=== PATIENT | male | born 1935 | race Caucasian/White ===

== ENCOUNTER 2020-10-19 10:34 | Inpatient (IN) | payer BC, MEDICARE, OTHER ==
[2020-10-19] MEDS ORDERED: ASPIRIN 81 MG CHEWABLE TABLETS PO ONE (11:22)
[2020-10-19 11:23] VITALS: BMI 28.7
[2020-10-19] MEDS ORDERED: ASPIRIN 81 MG CHEWABLE TABLETS ONE (11:44)
[2020-10-19 12:10] LABS: BASO % 0.7 % (0-2.0); EOS % 0.7 % (0-4.5); HEMATOCRIT 46.3 % (35.4-49); HEMOGLOBIN 15.7 GM/dL (11.7-16.9); LYMPH % 6.1 % (8-40); MCH 31.8 pg (25.7-33.7); MEAN CELL VOLUME 93.7 fl (80-96); MEAN PLT VOLUME 10.9 fl (7.5-11.1); MONO % 15.5 % (3.8-10.2); PLATELET COUNT 113 K/MM3 (134-434); RBC 4.94 M/mm3 (4.00-5.60); RDW 14.9 % (11.9-15.9); WHITE BLOOD COUNT 7.2 K/mm3 (4.0-10.0)
[2020-10-19 12:16] LABS: INR 1.11 (0.83-1.09); PROTHROMBIN TIME (PATIENT) 13.6 SEC (9.7-13.0)
[2020-10-19 12:19] LABS: ACTIVATED PTT 29.5 SECONDS (25.2-36.5)
[2020-10-19 12:26] LABS: POTASSIUM 4.1 mmol/L (3.5-5.1)
[2020-10-19 12:28] LABS: CALCIUM 9.1 mg/dL (8.5-10.1)
[2020-10-19 12:29] LABS: ALBUMIN 3.4 g/dl (3.4-5.0)
[2020-10-19 12:33] LABS: BILIRUBIN,TOTAL 0.4 mg/dL (0.2-1); TOT PROT 7.3 g/dl (6.4-8.2)
[2020-10-19 12:34] LABS: CHOLESTEROL 141 mg/dL (50-200); TRIGLYCERIDES 62 mg/dL (0-150)
[2020-10-19 12:35] LABS: LDL CHOLESTEROL (ONLY SJRH) 79 mg/dL (5-100)
[2020-10-19 12:37] LABS: HDL CHOLESTEROL 45 mg/dL (40-60)
[2020-10-19] MEDS ORDERED: SODIUM CHLORIDE 1,000 ML IV SCH (13:15)
[2020-10-19] MEDS ORDERED: metoPROLOL SUCCINATE 25 MG TAB.SR.24H (FP) PO ONE (14:15)
[2020-10-19] MEDS ORDERED: ESCITALOPRAM OXALATE 10 MG TABLET PO ONE (14:16)
[2020-10-19] MEDS ORDERED: ATORVASTATIN CA 20 MG TABLET (FP) PO ONE (14:19)
[2020-10-19] MEDS ORDERED: ATORVASTATIN CA 20 MG TABLET (FP) ONE (14:59)
[2020-10-19] MEDS ORDERED: metoPROLOL SUCCINATE 25 MG TAB.SR.24H (FP) ONE (15:00)
[2020-10-19] MEDS ORDERED: ESCITALOPRAM OXALATE 10 MG TABLET ONE (15:00)
[2020-10-19] MEDS ORDERED: LOSARTAN POTASSIUM 50 MG TABLET ONE (15:00)
[2020-10-19] MEDS ORDERED: TAMSULOSIN HCL 0.4 MG CAP ONE (15:00)
[2020-10-19] MEDS ORDERED: CARBIDOPA/LEVODOPA 25/250 TABLET (FP) ONE (15:01)
[2020-10-19] MEDS ORDERED: ENALAPRILAT DIHYDRATE 1.25 MG/1 ML VIAL IVPB ONE (15:04)
[2020-10-19] MEDS: LOSARTAN POTASSIUM 50 MG TABLET PO SCH (15:29)
[2020-10-19] MEDS: metoPROLOL SUCCINATE 25 MG TAB.SR.24H (FP) PO SCH (15:30)
[2020-10-19] MEDS: TAMSULOSIN HCL 0.4 MG CAP PO SCH (15:30)
[2020-10-19] MEDS ORDERED: ENALAPRILAT DIHYDRATE 2.5 MG/2 ML VIAL IVPB ONE ×2 (16:00→17:13)
[2020-10-19] MEDS ORDERED: ASCORBIC ACID 500 MG TABLET (FP) ONE (17:13)
[2020-10-19] MEDS: ASCORBIC ACID 500 MG TABLET (FP) PO SCH (17:25)
[2020-10-19 20:56] LABS: PH,URINE 5.5 (5.0-8.0); URINE APPEARANCE CLEAR; URINE BILIRUBIN NEGATIVE (NEGATIVE); URINE COLOR YELLOW; URINE GLUCOSE (UA) NEGATIVE (NEGATIVE); URINE KETONE NEGATIVE (NEGATIVE); URINE LEUK ESTERASE NEGATIVE (NEGATIVE); URINE NITRITE NEGATIVE (NEGATIVE); URINE PROTEIN TRACE (NEGATIVE)
[2020-10-19] MEDS ORDERED: HEPARIN NA (PORCINE) 5,000 UNITS/ML 1ML VIAL ONE (22:44)
[2020-10-19] MEDS: HEPARIN NA (PORCINE) 5,000 UNITS/ML 1ML VIAL SQ SCH (23:44)
[2020-10-19] MEDS: RIVASTIGMINE TARTRATE 1.5 MG CAPSULE PO SCH (23:44)
[2020-10-20] MEDS ORDERED: ACETAMINOPHEN 325 MG TABLET (FP) PO PRN (03:05)
[2020-10-20 07:24] LABS: BASO % 0.7 % (0-2.0); EOS % 0.2 % (0-4.5); HEMATOCRIT 43.9 % (35.4-49); MCH 32.2 pg (25.7-33.7); MCHC 34.1 g/dl (32.0-35.9); MEAN CELL VOLUME 94.4 fl (80-96); MEAN PLT VOLUME 11.4 fl (7.5-11.1); MONO % 22.7 % (3.8-10.2); NEUT % 57.4 % (42.8-82.8); PLATELET COUNT 95 K/MM3 (134-434); RBC 4.65 M/mm3 (4.00-5.60); RDW 15.4 % (11.9-15.9); WHITE BLOOD COUNT 6.4 K/mm3 (4.0-10.0)
[2020-10-20 07:32] LABS: POTASSIUM 3.7 mmol/L (3.5-5.1)
[2020-10-20 07:40] LABS: BLOOD UREA NITROGEN 26.2 mg/dL (7-18); CALCIUM 8.5 mg/dL (8.5-10.1)
[2020-10-20 07:43] LABS: CREATININE 0.8 mg/dL (0.55-1.3)
[2020-10-20 08:40] LABS: ANISOCYTOSIS 1+; PLATELET ESTIMATE DECREASED
[2020-10-20] MEDS ORDERED: ASCORBIC ACID 500 MG TABLET (FP) ONE (09:10)
[2020-10-20] MEDS ORDERED: ZINC SULFATE 220 MG CAPSULE (FP) ONE (09:10)
[2020-10-20] MEDS ORDERED: TAMSULOSIN HCL 0.4 MG CAP ONE (09:10)
[2020-10-20] MEDS ORDERED: CHOLECALCIFEROL (VIT D3) 1,000 UNIT (25 MCG) TABLET ONE (09:10)
[2020-10-20] MEDS ORDERED: ASPIRIN 325 MG ENTERIC COATED TABLET (FP) ONE (09:10)
[2020-10-20] MEDS ORDERED: LOSARTAN POTASSIUM 50 MG TABLET ONE (09:10)
[2020-10-20] MEDS ORDERED: ESCITALOPRAM OXALATE 10 MG TABLET ONE (09:11)
[2020-10-20] MEDS ORDERED: HEPARIN NA (PORCINE) 5,000 UNITS/ML 1ML VIAL ONE (09:11)
[2020-10-20] MEDS ORDERED: PT OWN MED DRAWER 7, Y5N ONE ×2 (09:12→20:59)
[2020-10-20] MEDS: HEPARIN NA (PORCINE) 5,000 UNITS/ML 1ML VIAL SQ SCH ×2 (09:52→21:17)
[2020-10-20] MEDS: FINASTERIDE 5 MG TABLET (FP) PO SCH (09:52)
[2020-10-20] MEDS: ZINC SULFATE 220 MG CAPSULE (FP) PO SCH (09:52)
[2020-10-20] MEDS: TAMSULOSIN HCL 0.4 MG CAP PO SCH (09:52)
[2020-10-20] MEDS: ESCITALOPRAM OXALATE 10 MG TABLET PO SCH (09:52)
[2020-10-20] MEDS: ASCORBIC ACID 500 MG TABLET (FP) PO SCH (09:52)
[2020-10-20] MEDS: LOSARTAN POTASSIUM 50 MG TABLET PO SCH (09:52)
[2020-10-20] MEDS: ASPIRIN 325 MG ENTERIC COATED TABLET (FP) PO SCH (09:52)
[2020-10-20] MEDS: RIVASTIGMINE TARTRATE 1.5 MG CAPSULE PO SCH ×2 (09:52→23:04)
[2020-10-20] MEDS: ALLOPURINOL 300 MG TABLET (FP) PO SCH (09:53)
[2020-10-20] MEDS: CHOLECALCIFEROL (VIT D3) 1,000 UNIT (25 MCG) TABLET PO SCH (09:53)
[2020-10-20] MEDS ORDERED: DEXAMETHASONE SOD PHOSPHATE 4 MG/1 ML VIAL ONE (12:21)
[2020-10-20] MEDS: DEXAMETHASONE SOD PHOSPHATE 4 MG/1 ML VIAL IVPUSH SCH (12:35)
[2020-10-20] MEDS ORDERED: SODIUM CHLORIDE 1,000 ML IV SCH (20:30)
[2020-10-20] MEDS: ROSUVASTATIN CA 20 MG TABLET (FP) PO SCH (21:17)
[2020-10-20] MEDS ORDERED: EZETIMIBE 10 MG TABLET (FP) PO SCH (22:00)
[2020-10-21 08:30] LABS: HEMATOCRIT 44.7 % (35.4-49); MCHC 33.6 g/dl (32.0-35.9); MEAN CELL VOLUME 95.2 fl (80-96); MEAN PLT VOLUME 11.8 fl (7.5-11.1); PLATELET COUNT 92 K/MM3 (134-434); RDW 14.9 % (11.9-15.9); WHITE BLOOD COUNT 5.7 K/mm3 (4.0-10.0)
[2020-10-21 08:52] LABS: POTASSIUM 3.7 mmol/L (3.5-5.1)
[2020-10-21 09:01] LABS: CALCIUM 8.5 mg/dL (8.5-10.1); MAGNESIUM 1.8 mg/dL (1.8-2.4)
[2020-10-21 09:02] LABS: BLOOD UREA NITROGEN 27.3 mg/dL (7-18)
[2020-10-21 09:04] LABS: CREATININE 0.7 mg/dL (0.55-1.3)
[2020-10-21] MEDS: TAMSULOSIN HCL 0.4 MG CAP PO SCH (10:12)
[2020-10-21] MEDS: ALLOPURINOL 300 MG TABLET (FP) PO SCH (10:12)
[2020-10-21] MEDS: RIVASTIGMINE TARTRATE 1.5 MG CAPSULE PO SCH ×2 (10:12→22:19)
[2020-10-21] MEDS: DEXAMETHASONE SOD PHOSPHATE 4 MG/1 ML VIAL IVPUSH SCH (10:12)
[2020-10-21] MEDS: LOSARTAN POTASSIUM 50 MG TABLET PO SCH (10:12)
[2020-10-21] MEDS: FINASTERIDE 5 MG TABLET (FP) PO SCH (10:12)
[2020-10-21] MEDS: ESCITALOPRAM OXALATE 10 MG TABLET PO SCH (10:12)
[2020-10-21] MEDS: ASCORBIC ACID 500 MG TABLET (FP) PO SCH (10:13)
[2020-10-21] MEDS: CHOLECALCIFEROL (VIT D3) 1,000 UNIT (25 MCG) TABLET PO SCH (10:13)
[2020-10-21] MEDS: HEPARIN NA (PORCINE) 5,000 UNITS/ML 1ML VIAL SQ SCH ×2 (10:13→22:20)
[2020-10-21] MEDS: metoPROLOL SUCCINATE 25 MG TAB.SR.24H (FP) PO SCH (10:53)
[2020-10-21] MEDS ORDERED: PT OWN MED DRAWER 7, Y5N ONE (12:37)
[2020-10-21] MEDS: ASPIRIN 325 MG ENTERIC COATED TABLET (FP) PO SCH (12:52)
[2020-10-21] MEDS: ZINC SULFATE 220 MG CAPSULE (FP) PO SCH (13:53)
[2020-10-21] MEDS: ROSUVASTATIN CA 20 MG TABLET (FP) PO SCH (22:19)
[2020-10-22 07:46] LABS: POTASSIUM 3.7 mmol/L (3.5-5.1)
[2020-10-22 07:48] LABS: BLOOD UREA NITROGEN 22.2 mg/dL (7-18); CALCIUM 9.2 mg/dL (8.5-10.1); MAGNESIUM 1.7 mg/dL (1.8-2.4)
[2020-10-22 07:52] LABS: CREATININE 0.9 mg/dL (0.55-1.3); PHOSPHOROUS 1.6 mg/dL (2.5-4.9)
[2020-10-22 08:58] LABS: HEMATOCRIT 50.1 % (35.4-49); HEMOGLOBIN 16.7 GM/dL (11.7-16.9); MCH 31.4 pg (25.7-33.7); MCHC 33.4 g/dl (32.0-35.9); RBC 5.33 M/mm3 (4.00-5.60); WHITE BLOOD COUNT 7.7 K/mm3 (4.0-10.0)
[2020-10-22 08:59] LABS: LYMPH % 12.6 % (8-40); MEAN PLT VOLUME 11.7 fl (7.5-11.1); MONO % 19.6 % (3.8-10.2); NEUT % 66.8 % (42.8-82.8); PLATELET COUNT 105 K/MM3 (134-434); RDW 15.1 % (11.9-15.9)
[2020-10-22] MEDS ORDERED: PT OWN MED DRAWER 7, Y5N ONE ×2 (10:18→21:24)
[2020-10-22] MEDS: DEXAMETHASONE SOD PHOSPHATE 4 MG/1 ML VIAL IVPUSH SCH (10:27)
[2020-10-22] MEDS: CHOLECALCIFEROL (VIT D3) 1,000 UNIT (25 MCG) TABLET PO SCH (10:27)
[2020-10-22] MEDS: RIVASTIGMINE TARTRATE 1.5 MG CAPSULE PO SCH ×2 (10:28→22:19)
[2020-10-22] MEDS: ASCORBIC ACID 500 MG TABLET (FP) PO SCH (10:28)
[2020-10-22] MEDS: ALLOPURINOL 300 MG TABLET (FP) PO SCH (10:28)
[2020-10-22] MEDS: TAMSULOSIN HCL 0.4 MG CAP PO SCH (10:28)
[2020-10-22] MEDS: ZINC SULFATE 220 MG CAPSULE (FP) PO SCH (10:28)
[2020-10-22] MEDS: ESCITALOPRAM OXALATE 10 MG TABLET PO SCH (10:28)
[2020-10-22] MEDS: LOSARTAN POTASSIUM 50 MG TABLET PO SCH (10:28)
[2020-10-22] MEDS: FINASTERIDE 5 MG TABLET (FP) PO SCH (10:28)
[2020-10-22] MEDS: HEPARIN NA (PORCINE) 5,000 UNITS/ML 1ML VIAL SQ SCH ×2 (10:29→22:18)
[2020-10-22] MEDS: ASPIRIN 325 MG ENTERIC COATED TABLET (FP) PO SCH (10:29)
[2020-10-22] MEDS: metoPROLOL SUCCINATE 25 MG TAB.SR.24H (FP) PO SCH (10:30)
[2020-10-22] MEDS ORDERED: MAGNESIUM SULF 50% (8.12 MEQ/2 ML-1 GM VIAL) IVPB ONE (12:07)
[2020-10-22] MEDS ORDERED: POTASSIUM PHOSPHATE 30 MM in SODIUM CHLORIDE 500 ML IVPB ONE (13:00)
[2020-10-22] MEDS: amLODIPine BESYLATE 5 MG TABLET (FP) PO SCH (14:44)
[2020-10-22] MEDS ORDERED: REMDESIVIR 200 MG in SODIUM CHLORIDE 210 ML IVPB ONE (15:31)
[2020-10-22] MEDS: ROSUVASTATIN CA 20 MG TABLET (FP) PO SCH (22:19)
[2020-10-23 08:03] LABS: BASO % 0.1 % (0-2.0); HEMATOCRIT 48.9 % (35.4-49); HEMOGLOBIN 16.4 GM/dL (11.7-16.9); LYMPH % 25.7 % (8-40); MCH 31.6 pg (25.7-33.7); MCHC 33.6 g/dl (32.0-35.9); MEAN CELL VOLUME 93.9 fl (80-96); MEAN PLT VOLUME 11.6 fl (7.5-11.1); MONO % 19.5 % (3.8-10.2); NEUT % 54.7 % (42.8-82.8); PLATELET COUNT 97 K/MM3 (134-434); RBC 5.21 M/mm3 (4.00-5.60); RDW 15.1 % (11.9-15.9); WHITE BLOOD COUNT 5.2 K/mm3 (4.0-10.0)
[2020-10-23 08:17] LABS: ALBUMIN 3.2 g/dl (3.4-5.0); BLOOD UREA NITROGEN 24.8 mg/dL (7-18)
[2020-10-23 08:20] LABS: CREATININE 0.7 mg/dL (0.55-1.3); PHOSPHOROUS 1.9 mg/dL (2.5-4.9)
[2020-10-23 08:22] LABS: TOT PROT 7.2 g/dl (6.4-8.2)
[2020-10-23] MEDS ORDERED: PT OWN MED DRAWER 7, Y5N ONE (09:24)
[2020-10-23 09:31] LABS: PLATELET ESTIMATE DECREASED
[2020-10-23] MEDS: CHOLECALCIFEROL (VIT D3) 1,000 UNIT (25 MCG) TABLET PO SCH (09:42)
[2020-10-23] MEDS: ESCITALOPRAM OXALATE 10 MG TABLET PO SCH (09:43)
[2020-10-23] MEDS: ZINC SULFATE 220 MG CAPSULE (FP) PO SCH (09:43)
[2020-10-23] MEDS: ASCORBIC ACID 500 MG TABLET (FP) PO SCH (09:43)
[2020-10-23] MEDS: amLODIPine BESYLATE 5 MG TABLET (FP) PO SCH (09:43)
[2020-10-23] MEDS: ALLOPURINOL 300 MG TABLET (FP) PO SCH (09:43)
[2020-10-23] MEDS: RIVASTIGMINE TARTRATE 1.5 MG CAPSULE PO SCH ×2 (09:44→21:52)
[2020-10-23] MEDS: TAMSULOSIN HCL 0.4 MG CAP PO SCH (09:44)
[2020-10-23] MEDS: LOSARTAN POTASSIUM 50 MG TABLET PO SCH (09:44)
[2020-10-23] MEDS: ASPIRIN 325 MG ENTERIC COATED TABLET (FP) PO SCH (09:45)
[2020-10-23] MEDS: metoPROLOL SUCCINATE 25 MG TAB.SR.24H (FP) PO SCH (09:45)
[2020-10-23] MEDS: FINASTERIDE 5 MG TABLET (FP) PO SCH (09:45)
[2020-10-23] MEDS: DEXAMETHASONE SOD PHOSPHATE 4 MG/1 ML VIAL IVPUSH SCH (09:46)
[2020-10-23] MEDS: HEPARIN NA (PORCINE) 5,000 UNITS/ML 1ML VIAL SQ SCH ×2 (09:46→21:53)
[2020-10-23] MEDS: REMDESIVIR 100 MG in SODIUM CHLORIDE 230 ML IVPB SCH (17:09)
[2020-10-23] MEDS: NAPH,MB-DB/K PH,MBDB POWDER PACKET PO SCH (21:52)
[2020-10-23] MEDS: ROSUVASTATIN CA 20 MG TABLET (FP) PO SCH (21:52)
[2020-10-24 08:42] LABS: HEMOGLOBIN 17.2 GM/dL (11.7-16.9); MCH 31.5 pg (25.7-33.7); MCHC 33.7 g/dl (32.0-35.9); MEAN CELL VOLUME 93.3 fl (80-96); MEAN PLT VOLUME 10.3 fl (7.5-11.1); PLATELET COUNT 87 K/MM3 (134-434); RBC 5.47 M/mm3 (4.00-5.60); RDW 15.3 % (11.9-15.9); WHITE BLOOD COUNT 6.2 K/mm3 (4.0-10.0)
[2020-10-24 08:58] LABS: POTASSIUM 3.9 mmol/L (3.5-5.1)
[2020-10-24 09:07] LABS: CALCIUM 8.9 mg/dL (8.5-10.1)
[2020-10-24 09:08] LABS: BLOOD UREA NITROGEN 29.8 mg/dL (7-18)
[2020-10-24 09:11] LABS: CREATININE 0.8 mg/dL (0.55-1.3)
[2020-10-24] MEDS: TAMSULOSIN HCL 0.4 MG CAP PO SCH (09:31)
[2020-10-24] MEDS: HEPARIN NA (PORCINE) 5,000 UNITS/ML 1ML VIAL SQ SCH ×2 (09:31→21:41)
[2020-10-24] MEDS: ZINC SULFATE 220 MG CAPSULE (FP) PO SCH (09:31)
[2020-10-24] MEDS: DEXAMETHASONE SOD PHOSPHATE 4 MG/1 ML VIAL IVPUSH SCH (09:31)
[2020-10-24] MEDS: LOSARTAN POTASSIUM 50 MG TABLET PO SCH (09:32)
[2020-10-24] MEDS: ASCORBIC ACID 500 MG TABLET (FP) PO SCH (09:32)
[2020-10-24] MEDS: ALLOPURINOL 300 MG TABLET (FP) PO SCH (09:32)
[2020-10-24] MEDS: FINASTERIDE 5 MG TABLET (FP) PO SCH (09:32)
[2020-10-24] MEDS: CHOLECALCIFEROL (VIT D3) 1,000 UNIT (25 MCG) TABLET PO SCH (09:32)
[2020-10-24] MEDS: amLODIPine BESYLATE 5 MG TABLET (FP) PO SCH (09:32)
[2020-10-24] MEDS: ESCITALOPRAM OXALATE 10 MG TABLET PO SCH (09:32)
[2020-10-24] MEDS ORDERED: PT OWN MED DRAWER 7, Y5N ONE ×2 (09:34→21:24)
[2020-10-24] MEDS: ASPIRIN 325 MG ENTERIC COATED TABLET (FP) PO SCH (09:35)
[2020-10-24] MEDS: metoPROLOL SUCCINATE 25 MG TAB.SR.24H (FP) PO SCH (09:35)
[2020-10-24] MEDS: RIVASTIGMINE TARTRATE 1.5 MG CAPSULE PO SCH ×2 (09:35→21:40)
[2020-10-24] MEDS: NAPH,MB-DB/K PH,MBDB POWDER PACKET PO SCH ×2 (09:35→21:41)
[2020-10-24 14:56] LABS: PHOSPHOROUS 2.5 mg/dL (2.5-4.9)
[2020-10-24] MEDS: REMDESIVIR 100 MG in SODIUM CHLORIDE 230 ML IVPB SCH (17:05)
[2020-10-24] MEDS ORDERED: ASPIRIN 325 MG ENTERIC COATED TABLET (FP) PO SCH (19:21)
[2020-10-24] MEDS: ROSUVASTATIN CA 20 MG TABLET (FP) PO SCH (21:40)
[2020-10-25] MEDS: HEPARIN NA (PORCINE) 5,000 UNITS/ML 1ML VIAL SQ SCH ×3 (06:05→21:39)
[2020-10-25 07:19] LABS: HEMATOCRIT 50.8 % (35.4-49); HEMOGLOBIN 17.1 GM/dL (11.7-16.9); MCH 31.6 pg (25.7-33.7); MCHC 33.6 g/dl (32.0-35.9); MEAN CELL VOLUME 93.9 fl (80-96); MEAN PLT VOLUME 11.3 fl (7.5-11.1); PLATELET COUNT 93 K/MM3 (134-434); RBC 5.42 M/mm3 (4.00-5.60); RDW 15.4 % (11.9-15.9)
[2020-10-25 07:44] LABS: POTASSIUM 3.8 mmol/L (3.5-5.1)
[2020-10-25 07:46] LABS: CALCIUM 8.7 mg/dL (8.5-10.1)
[2020-10-25 07:50] LABS: CREATININE 0.7 mg/dL (0.55-1.3); PHOSPHOROUS 2.5 mg/dL (2.5-4.9)
[2020-10-25 07:51] LABS: BILIRUBIN,TOTAL 0.5 mg/dL (0.2-1); TOT PROT 6.8 g/dl (6.4-8.2)
[2020-10-25] MEDS: TAMSULOSIN HCL 0.4 MG CAP PO SCH (09:45)
[2020-10-25] MEDS: LOSARTAN POTASSIUM 50 MG TABLET PO SCH (09:45)
[2020-10-25] MEDS: ALLOPURINOL 300 MG TABLET (FP) PO SCH (09:46)
[2020-10-25] MEDS: CHOLECALCIFEROL (VIT D3) 1,000 UNIT (25 MCG) TABLET PO SCH (09:46)
[2020-10-25] MEDS: amLODIPine BESYLATE 5 MG TABLET (FP) PO SCH (09:46)
[2020-10-25] MEDS: ASPIRIN COATED 81 MG TABLET.EC PO SCH (09:46)
[2020-10-25] MEDS: NAPH,MB-DB/K PH,MBDB POWDER PACKET PO SCH ×2 (09:46→21:40)
[2020-10-25] MEDS: ASCORBIC ACID 500 MG TABLET (FP) PO SCH (09:46)
[2020-10-25] MEDS: ESCITALOPRAM OXALATE 10 MG TABLET PO SCH (09:46)
[2020-10-25] MEDS: ZINC SULFATE 220 MG CAPSULE (FP) PO SCH (09:46)
[2020-10-25] MEDS: DEXAMETHASONE SOD PHOSPHATE 4 MG/1 ML VIAL IVPUSH SCH (09:46)
[2020-10-25] MEDS: FINASTERIDE 5 MG TABLET (FP) PO SCH (09:47)
[2020-10-25] MEDS: RIVASTIGMINE TARTRATE 1.5 MG CAPSULE PO SCH ×2 (09:49→21:39)
[2020-10-25] MEDS: metoPROLOL SUCCINATE 25 MG TAB.SR.24H (FP) PO SCH (10:24)
[2020-10-25] MEDS ORDERED: LOSARTAN POTASSIUM 25 MG TABLET PO ONE (13:36)
[2020-10-25 15:02] LABS: MAGNESIUM 1.9 mg/dL (1.8-2.4)
[2020-10-25] MEDS: REMDESIVIR 100 MG in SODIUM CHLORIDE 230 ML IVPB SCH (15:11)
[2020-10-25] MEDS ORDERED: MAGNESIUM SULF 50% (8.12 MEQ/2 ML-1 GM VIAL) IVPB ONE (15:20)
[2020-10-25] MEDS: KCL 10 MEQ IVPB 10 MEQ/100 ML INFUS.BAG IVPB SCH ×3 (18:03→21:30)
[2020-10-25] MEDS: ROSUVASTATIN CA 20 MG TABLET (FP) PO SCH (21:39)
[2020-10-26] MEDS: HEPARIN NA (PORCINE) 5,000 UNITS/ML 1ML VIAL SQ SCH ×2 (06:04→14:56)
[2020-10-26 09:38] LABS: MEAN PLT VOLUME 10.2 fl (7.5-11.1); PLATELET COUNT 87 K/MM3 (134-434)
[2020-10-26] MEDS: RIVASTIGMINE TARTRATE 1.5 MG CAPSULE PO SCH (09:53)
[2020-10-26] MEDS: TAMSULOSIN HCL 0.4 MG CAP PO SCH (09:53)
[2020-10-26] MEDS: NAPH,MB-DB/K PH,MBDB POWDER PACKET PO SCH (09:53)
[2020-10-26] MEDS: ALLOPURINOL 300 MG TABLET (FP) PO SCH (09:54)
[2020-10-26] MEDS: CHOLECALCIFEROL (VIT D3) 1,000 UNIT (25 MCG) TABLET PO SCH (09:54)
[2020-10-26] MEDS: ESCITALOPRAM OXALATE 10 MG TABLET PO SCH (09:57)
[2020-10-26] MEDS: ASPIRIN COATED 81 MG TABLET.EC PO SCH (09:57)
[2020-10-26] MEDS: DEXAMETHASONE SOD PHOSPHATE 4 MG/1 ML VIAL IVPUSH SCH (09:57)
[2020-10-26] MEDS: amLODIPine BESYLATE 5 MG TABLET (FP) PO SCH (09:57)
[2020-10-26] MEDS: ZINC SULFATE 220 MG CAPSULE (FP) PO SCH (09:58)
[2020-10-26] MEDS: FINASTERIDE 5 MG TABLET (FP) PO SCH (09:58)
[2020-10-26] MEDS: ASCORBIC ACID 500 MG TABLET (FP) PO SCH (09:59)
[2020-10-26] MEDS ORDERED: LOSARTAN POTASSIUM 50 MG TABLET PO SCH (10:00)
[2020-10-26 10:01] LABS: POTASSIUM 3.8 mmol/L (3.5-5.1)
[2020-10-26 10:04] LABS: HEMATOCRIT 49.4 % (35.4-49); HEMOGLOBIN 16.6 GM/dL (11.7-16.9); MCH 31.6 pg (25.7-33.7); MCHC 33.6 g/dl (32.0-35.9); MEAN CELL VOLUME 94.1 fl (80-96); RBC 5.25 M/mm3 (4.00-5.60); RDW 15.1 % (11.9-15.9); WHITE BLOOD COUNT 7.6 K/mm3 (4.0-10.0)
[2020-10-26 10:56] LABS: CALCIUM 9.1 mg/dL (8.5-10.1)
[2020-10-26 10:57] LABS: ALBUMIN 2.9 g/dl (3.4-5.0); BLOOD UREA NITROGEN 35.9 mg/dL (7-18)
[2020-10-26 11:00] LABS: CREATININE 0.7 mg/dL (0.55-1.3)
[2020-10-26 11:02] LABS: BILIRUBIN,TOTAL 0.6 mg/dL (0.2-1); TOT PROT 6.8 g/dl (6.4-8.2)
[2020-10-26] MEDS: metoPROLOL SUCCINATE 25 MG TAB.SR.24H (FP) PO SCH (11:15)
[2020-10-26 15:59] VITALS: BP 108/67; PULSE 79; TEMP 98.9
[2020-10-26] MEDS: REMDESIVIR 100 MG in SODIUM CHLORIDE 230 ML IVPB SCH (15:59)
== END 2020-10-26 18:44 | disposition home health service (06) | DRG 177 ==
LOC: JER 10:34 → JERBED 13:06 → J4W 10-20 18:44
PROVIDERS: ADMIT Internal Medicine; ATTEND Internal Medicine
PROC: XW13325 Transfusion of Convalescent Plasma (Nonautologous) into Peripheral Vein, Percutaneous Approach, New Technology Group 5 (ICD-10-PCS; principal; 2020-10-22)
PROC: XW033E5 Introduction of Remdesivir Anti-infective into Peripheral Vein, Percutaneous Approach, New Technology Group 5 (ICD-10-PCS; 2020-10-22)
DX: U07.1 COVID-19 (principal); G93.41 Metabolic encephalopathy; J96.01 Acute respiratory failure with hypoxia; J12.82 Pneumonia due to coronavirus disease 2019; E87.1 Hypo-osmolality and hyponatremia; I47.1 Supraventricular tachycardia; G81.94 Hemiplegia, unspecified affecting left nondominant side; F03.90 Unspecified dementia, unspecified severity, without behavioral disturbance, psychotic disturbance, mood disturbance, and anxiety; I10 Essential (primary) hypertension; I25.10 Atherosclerotic heart disease of native coronary artery without angina pectoris; E78.5 Hyperlipidemia, unspecified; I44.0 Atrioventricular block, first degree; G20 Parkinson's disease; F02.80 Dementia in other diseases classified elsewhere, unspecified severity, without behavioral disturbance, psychotic disturbance, mood disturbance, and anxiety; N40.0 Benign prostatic hyperplasia without lower urinary tract symptoms; R00.1 Bradycardia, unspecified; M10.9 Gout, unspecified; D75.1 Secondary polycythemia
CPT/HCPCS: 36415; 36430; 70450-TC; 70496-TC; 70498-TC; 70551-TC; 71045-TC-FY; 80048; 80053; 80061; 81003; 82550; 82728; 82962; 83036; 83615; 83721; 83735; 84100; 84443; 84484; 85025; 85027; 85379; 85610; 85730; 86140; 86850; 86900; 86901; 87426; 87804; 93005; 93010; 94761; 97116-GP; 97161-GP; 99285-25; C9399; J1644; P9017

== ENCOUNTER 2022-05-03 21:04 | Inpatient (IN) | payer OTHER ==
[2022-05-03 21:26] VITALS: BMI 29.9
[2022-05-03 23:25] LABS: VENOUS O2 SATURATION 90.7 % (70-80); VENOUS PCO2 51.2 mmHg (38-52); VENOUS PH 7.402 (7.310-7.410)
[2022-05-03 23:26] LABS: BASO % 1.9 % (0-2.0); EOS % 0.6 % (0-4.5); HEMATOCRIT 42.5 % (35.4-49); HEMOGLOBIN 14.4 GM/dL (11.7-16.9); LYMPH % 23.4 % (8-40); MCH 31.9 pg (25.7-33.7); MCHC 33.8 g/dl (32.0-35.9); MEAN CELL VOLUME 94.5 fl (80-96); MEAN PLT VOLUME 9.9 fl (7.5-11.1); MONO % 7.9 % (3.8-10.2); NEUT % 66.2 % (42.8-82.8); PLATELET COUNT 121 10^3/uL (134-434); RDW 15.1 % (11.9-15.9); WHITE BLOOD COUNT 6.8 K/mm3 (4.0-10.0)
[2022-05-03 23:50] LABS: PH,URINE 5.5 (5.0-8.0); URINE APPEARANCE CLEAR; URINE BILIRUBIN NEGATIVE (NEGATIVE); URINE COLOR YELLOW; URINE GLUCOSE (UA) NEGATIVE (NEGATIVE); URINE KETONE NEGATIVE (NEGATIVE); URINE LEUK ESTERASE NEGATIVE (NEGATIVE); URINE NITRITE NEGATIVE (NEGATIVE); URINE PROTEIN NEGATIVE (NEGATIVE)
[2022-05-03 23:58] LABS: CALCIUM 8.8 mg/dL (8.5-10.1)
[2022-05-03 23:59] LABS: ALBUMIN 3.1 g/dl (3.4-5.0); BLOOD UREA NITROGEN 24.3 mg/dL (7-18)
[2022-05-04 00:02] LABS: CREATININE 0.8 mg/dL (0.55-1.3)
[2022-05-04 00:03] LABS: BILIRUBIN,TOTAL 0.6 mg/dL (0.2-1)
[2022-05-04] MEDS ORDERED: ACETAMINOPHEN 325 MG TABLET (FP) PO PRN (02:19)
[2022-05-04] MEDS ORDERED: ALBUTEROL SO4 HFA INHALER IH PRN (04:55)
[2022-05-04] MEDS ORDERED: hydrALAZINE HCL 20 MG/ML VIAL IVPUSH ONE (06:27)
[2022-05-04 07:14] VITALS: TEMP 98.6
[2022-05-04] MEDS ORDERED: TAMSULOSIN HCL 0.4 MG CAP PO SCH (08:30)
[2022-05-04] MEDS ORDERED: CHOLECALCIFEROL (VIT D3) 1,000 UNIT (25 MCG) TABLET ONE (09:02)
[2022-05-04] MEDS ORDERED: ASPIRIN 81 MG CHEWABLE TABLETS ONE (09:02)
[2022-05-04] MEDS ORDERED: TAMSULOSIN HCL 0.4 MG CAP ONE (09:03)
[2022-05-04] MEDS ORDERED: ENOXAPARIN NA (PORCINE) 40 MG/0.4 ML DISP.SYRIN SQ ONE (09:03)
[2022-05-04] MEDS ORDERED: ASCORBIC ACID 500 MG TABLET (FP) ONE (09:07)
[2022-05-04] MEDS ORDERED: FINASTERIDE 5 MG TABLET (FP) PO SCH (10:00)
[2022-05-04] MEDS ORDERED: CHOLECALCIFEROL (VIT D3) 1,000 UNIT (25 MCG) TABLET PO SCH (10:00)
[2022-05-04] MEDS ORDERED: PATIENT'S OWN MEDICATION (NON-FORMULARY) (Ubidecarenone [Coq-10] 100 MG Capsule) PO SCH (10:00)
[2022-05-04] MEDS ORDERED: ASPIRIN 81 MG CHEWABLE TABLETS PO SCH (10:00)
[2022-05-04] MEDS ORDERED: metoPROLOL SUCCINATE 25 MG TAB.SR.24H (FP) PO SCH ×2 (10:00→13:00)
[2022-05-04] MEDS ORDERED: ALLOPURINOL 300 MG TABLET (FP) PO SCH (10:00)
[2022-05-04] MEDS ORDERED: RIVASTIGMINE TARTRATE 1.5 MG CAPSULE PO SCH (10:00)
[2022-05-04] MEDS ORDERED: ESCITALOPRAM OXALATE 10 MG TABLET PO SCH (10:00)
[2022-05-04] MEDS ORDERED: EZETIMIBE 10 MG TABLET (FP) PO SCH (10:00)
[2022-05-04] MEDS ORDERED: ASCORBIC ACID 500 MG TABLET (FP) PO SCH (10:00)
[2022-05-04] MEDS ORDERED: ENOXAPARIN NA (PORCINE) 40 MG/0.4 ML DISP.SYRIN SQ SCH (10:00)
[2022-05-04 10:47] VITALS: RESP 17
[2022-05-04 12:18] LABS: BLOOD UREA NITROGEN 20.2 mg/dL (7-18); CALCIUM 9.1 mg/dL (8.5-10.1); CREATININE 0.8 mg/dL (0.55-1.3)
[2022-05-04] MEDS ORDERED: LOSARTAN POTASSIUM 50 MG TABLET PO SCH (13:00)
[2022-05-04] MEDS ORDERED: metoPROLOL SUCCINATE 25 MG TAB.SR.24H (FP) PO ONE (13:41)
[2022-05-04 13:55] VITALS: BP 192/103; PULSE 54
[2022-05-04] MEDS ORDERED: ATORVASTATIN CA 10 MG TABLET (FP) PO SCH (22:00)
== END 2022-05-04 14:15 | disposition home or self-care (01) | DRG 884 ==
LOC: JER 21:04 → JERBED 05-04 00:47
PROVIDERS: ADMIT Internal Medicine; ATTEND Nurse Practitioner Family
DX: F03.91 Unspecified dementia, unspecified severity, with behavioral disturbance (principal); G93.41 Metabolic encephalopathy; I69.354 Hemiplegia and hemiparesis following cerebral infarction affecting left non-dominant side; E78.5 Hyperlipidemia, unspecified; G20 Parkinson's disease; I10 Essential (primary) hypertension; I25.10 Atherosclerotic heart disease of native coronary artery without angina pectoris; I25.2 Old myocardial infarction; D69.6 Thrombocytopenia, unspecified; R00.1 Bradycardia, unspecified; Z95.5 Presence of coronary angioplasty implant and graft
CPT/HCPCS: 36415; 70450-TC; 70551-TC; 71045-TC-FY; 72125-TC; 80048; 80053; 80061; 81003; 82550; 82553; 82803; 83605; 84443; 84484; 85025; 87040; 87086; 87899; 93005; 93010; 93880-TC; 99285-25; C9803-CS; U0003; U0005

== ENCOUNTER 2023-10-25 18:09 | Inpatient (IN) | payer OTHER ==
[2023-10-25 19:59] LABS: POTASSIUM 3.9 mmol/L (3.5-5.1)
[2023-10-25 20:02] LABS: ALBUMIN 2.9 g/dl (3.4-5.0); BLOOD UREA NITROGEN 37.1 mg/dL (7-18); MAGNESIUM 2.1 mg/dL (1.8-2.4)
[2023-10-25 20:05] LABS: CREATININE 1.1 mg/dL (0.55-1.3); HEMATOCRIT 41.5 % (35.4-49); HEMOGLOBIN 13.7 GM/dL (11.7-16.9); MCH 32.8 pg (25.7-33.7); MCHC 32.9 g/dl (32.0-35.9); MEAN CELL VOLUME 99.8 fl (80-96); MEAN PLT VOLUME 10.6 fl (7.5-11.1); PHOSPHOROUS 2.8 mg/dL (2.5-4.9); PLATELET COUNT 106 10^3/uL (134-434); RBC 4.16 M/mm3 (4.00-5.60); RDW 15.5 % (11.9-15.9); WHITE BLOOD COUNT 9.4 K/mm3 (4.0-10.0)
[2023-10-25 20:06] LABS: BILIRUBIN,TOTAL 0.8 mg/dL (0.2-1); EPI CELLS 18 /uL (0-25.1); HYALINE CASTS 1 /uL (0-3.1); PH,URINE 5.5 (5.0-8.0); TOT PROT 7.2 g/dl (6.4-8.2); URINE APPEARANCE CLEAR; URINE BACTERIA 3 /uL (0-1359); URINE BILIRUBIN 1+ (NEGATIVE); URINE COLOR DK YELLOW; URINE GLUCOSE (UA) NEGATIVE (NEGATIVE); URINE KETONE TRACE (NEGATIVE); URINE LEUK ESTERASE 2+ (NEGATIVE); URINE NITRITE NEGATIVE (NEGATIVE); URINE PROTEIN TRACE (NEGATIVE); URINE WBC 167 /uL (0-25.8)
[2023-10-25 20:35] LABS: URINE RBC 64.6 /uL (0-23.9)
[2023-10-25] MEDS ORDERED: CEFTRIAXONE 1,000 MG in DEXTROSE 5%-WATER - 50 ML IVPB ONE (20:45)
[2023-10-25] MEDS ORDERED: CEFTRIAXONE 1 GM/50 ML BAG ONE (20:49)
[2023-10-25 21:18] LABS: ANISOCYTOSIS 2+; MACROCYTOSIS 1+
[2023-10-26] MEDS: QUEtiapine FUMARATE 50 MG TABLET PO SCH ×4 (01:21→14:22)
[2023-10-26] MEDS: ATORVASTATIN CA 10 MG TABLET (FP) PO SCH ×2 (01:21→02:30)
[2023-10-26] MEDS: EZETIMIBE 10 MG TABLET (FP) PO SCH ×3 (01:21→21:33)
[2023-10-26] MEDS ORDERED: FUROSEMIDE 40 MG/4 ML INJECTABLE VIAL IVPUSH ONE (04:20)
[2023-10-26] MEDS ORDERED: AZITHROMYCIN IVPB 500 MG/250 ML BAG IVPB SCH (05:45)
[2023-10-26] MEDS ORDERED: AZITHROMYCIN IVPB 500 MG in DEXTROSE 5%-WATER - 250 ML IVPB SCH (06:00)
[2023-10-26 07:57] LABS: HEMATOCRIT 41.9 % (35.4-49); HEMOGLOBIN 13.9 GM/dL (11.7-16.9); MCHC 33.1 g/dl (32.0-35.9); MEAN CELL VOLUME 99.8 fl (80-96); MEAN PLT VOLUME 10.6 fl (7.5-11.1); PLATELET COUNT 93 10^3/uL (134-434); WHITE BLOOD COUNT 8.1 K/mm3 (4.0-10.0)
[2023-10-26 08:08] LABS: POTASSIUM 3.7 mmol/L (3.5-5.1)
[2023-10-26 08:22] LABS: ALBUMIN 3.1 g/dl (3.4-5.0); BLOOD UREA NITROGEN 36.1 mg/dL (7-18)
[2023-10-26 08:23] LABS: CALCIUM 9.1 mg/dL (8.5-10.1)
[2023-10-26 08:26] LABS: PHOSPHOROUS 3.5 mg/dL (2.5-4.9)
[2023-10-26 08:27] LABS: BILIRUBIN,TOTAL 0.8 mg/dL (0.2-1)
[2023-10-26 08:29] LABS: TOT PROT 7.6 g/dl (6.4-8.2)
[2023-10-26 08:31] LABS: N-TERMINAL BNP 1086.7 pg/ml (5-450)
[2023-10-26] MEDS: TAMSULOSIN HCL 0.4 MG CAP PO SCH (08:41)
[2023-10-26] MEDS: ESCITALOPRAM OXALATE 10 MG TABLET PO SCH (10:41)
[2023-10-26] MEDS: ALLOPURINOL 300 MG TABLET (FP) PO SCH (10:41)
[2023-10-26] MEDS: ENOXAPARIN NA (PORCINE) 40 MG/0.4 ML DISP.SYRIN SQ SCH (10:41)
[2023-10-26] MEDS: LOSARTAN POTASSIUM 25 MG TABLET PO SCH ×2 (10:41→21:33)
[2023-10-26] MEDS: FINASTERIDE 5 MG TABLET (FP) PO SCH (10:41)
[2023-10-26] MEDS ORDERED: QUEtiapine FUMARATE 25 MG TABLET PO SCH (11:23)
[2023-10-26] MEDS: FUROSEMIDE 40 MG/4 ML INJECTABLE VIAL IVPUSH SCH (14:25)
[2023-10-26] MEDS ORDERED: DEXTROSE 5%-NORMAL SALINE 1,000 ML IV SCH (15:45)
[2023-10-26] MEDS ORDERED: CEFTRIAXONE 1,000 MG in DEXTROSE 5%-WATER - 50 ML IVPB ONE (16:20)
[2023-10-26] MEDS ORDERED: AZITHROMYCIN IVPB 250 MG in DEXTROSE 5%-WATER - 250 ML IVPB SCH (16:30)
[2023-10-26] MEDS: PIPERACILLIN/TAZOB 3.375 GM 3.375 GM in DEXTROSE 5%-WATER - 50 ML IVPB SCH (18:57)
[2023-10-26] MEDS ORDERED: CEFTRIAXONE 1 GM in DEXTROSE 5%-WATER - 50 ML IVPB SCH (20:00)
[2023-10-26] MEDS: ATORVASTATIN CA 20 MG TABLET (FP) PO SCH (21:34)
[2023-10-27] MEDS: PIPERACILLIN/TAZOB 3.375 GM 3.375 GM in DEXTROSE 5%-WATER - 50 ML IVPB SCH ×3 (01:51→17:25)
[2023-10-27] MEDS: FUROSEMIDE 40 MG/4 ML INJECTABLE VIAL IVPUSH SCH ×2 (06:08→13:24)
[2023-10-27 08:12] LABS: HEMATOCRIT 40.6 % (35.4-49); HEMOGLOBIN 13.2 GM/dL (11.7-16.9); MCH 32.7 pg (25.7-33.7); MCHC 32.6 g/dl (32.0-35.9); MEAN CELL VOLUME 100.1 fl (80-96); MEAN PLT VOLUME 10.2 fl (7.5-11.1); PLATELET COUNT 93 10^3/uL (134-434); RBC 4.06 M/mm3 (4.00-5.60); RDW 15.7 % (11.9-15.9); WHITE BLOOD COUNT 5.1 K/mm3 (4.0-10.0)
[2023-10-27 08:22] LABS: POTASSIUM 3.6 mmol/L (3.5-5.1)
[2023-10-27 08:25] LABS: ALBUMIN 2.8 g/dl (3.4-5.0); BLOOD UREA NITROGEN 41.8 mg/dL (7-18); MAGNESIUM 2.1 mg/dL (1.8-2.4)
[2023-10-27 08:28] LABS: CREATININE 1.2 mg/dL (0.55-1.3); PHOSPHOROUS 3.6 mg/dL (2.5-4.9)
[2023-10-27 08:29] LABS: BILIRUBIN,TOTAL 0.7 mg/dL (0.2-1)
[2023-10-27] MEDS: FINASTERIDE 5 MG TABLET (FP) PO SCH (09:30)
[2023-10-27] MEDS: ALLOPURINOL 300 MG TABLET (FP) PO SCH (09:30)
[2023-10-27] MEDS: ESCITALOPRAM OXALATE 10 MG TABLET PO SCH (09:30)
[2023-10-27] MEDS: TAMSULOSIN HCL 0.4 MG CAP PO SCH (09:30)
[2023-10-27] MEDS: LOSARTAN POTASSIUM 25 MG TABLET PO SCH ×2 (09:30→22:10)
[2023-10-27] MEDS: ENOXAPARIN NA (PORCINE) 40 MG/0.4 ML DISP.SYRIN SQ SCH (09:30)
[2023-10-27 11:34] LABS: ANISOCYTOSIS 0; HELMET CELLS 0; HOWELL-JOLLY BODIES 0; MACROCYTOSIS 0; OVALOCYTE 0; ROULEAU 0; SICKELED CELLS 0; TARGET CELLS 0; TEAR DROP CELLS 0; TOXIC GRANULATION 0
[2023-10-27] MEDS: ATORVASTATIN CA 20 MG TABLET (FP) PO SCH (22:10)
[2023-10-27] MEDS: EZETIMIBE 10 MG TABLET (FP) PO SCH (22:11)
[2023-10-27 23:58] VITALS: BMI 29.5
[2023-10-28] MEDS: PIPERACILLIN/TAZOB 3.375 GM 3.375 GM in DEXTROSE 5%-WATER - 50 ML IVPB SCH ×5 (02:14→17:04)
[2023-10-28] MEDS: FUROSEMIDE 40 MG/4 ML INJECTABLE VIAL IVPUSH SCH ×2 (06:14→14:03)
[2023-10-28 08:01] LABS: HEMATOCRIT 44.9 % (35.4-49); HEMOGLOBIN 14.6 GM/dL (11.7-16.9); MCH 32.4 pg (25.7-33.7); MCHC 32.5 g/dl (32.0-35.9); MEAN CELL VOLUME 99.9 fl (80-96); MEAN PLT VOLUME 10.6 fl (7.5-11.1); PLATELET COUNT 123 10^3/uL (134-434); RBC 4.49 M/mm3 (4.00-5.60); RDW 15.6 % (11.9-15.9); WHITE BLOOD COUNT 5.3 K/mm3 (4.0-10.0)
[2023-10-28 08:25] LABS: POTASSIUM 3.6 mmol/L (3.5-5.1)
[2023-10-28 08:28] LABS: ALBUMIN 3.2 g/dl (3.4-5.0); CALCIUM 10.1 mg/dL (8.5-10.1)
[2023-10-28 08:29] LABS: BLOOD UREA NITROGEN 38.1 mg/dL (7-18)
[2023-10-28 08:31] LABS: CREATININE 1.2 mg/dL (0.55-1.3)
[2023-10-28 08:33] LABS: BILIRUBIN,TOTAL 0.8 mg/dL (0.2-1); TOT PROT 8.1 g/dl (6.4-8.2)
[2023-10-28] MEDS: ALLOPURINOL 300 MG TABLET (FP) PO SCH (09:19)
[2023-10-28] MEDS: TAMSULOSIN HCL 0.4 MG CAP PO SCH (09:19)
[2023-10-28] MEDS: FINASTERIDE 5 MG TABLET (FP) PO SCH (09:19)
[2023-10-28] MEDS: LOSARTAN POTASSIUM 25 MG TABLET PO SCH ×2 (09:19→21:51)
[2023-10-28] MEDS: ENOXAPARIN NA (PORCINE) 40 MG/0.4 ML DISP.SYRIN SQ SCH (09:20)
[2023-10-28] MEDS: ESCITALOPRAM OXALATE 10 MG TABLET PO SCH (11:50)
[2023-10-28] MEDS: ATORVASTATIN CA 20 MG TABLET (FP) PO SCH (21:57)
[2023-10-29] MEDS: PIPERACILLIN/TAZOB 3.375 GM 3.375 GM in DEXTROSE 5%-WATER - 50 ML IVPB SCH ×3 (01:47→17:13)
[2023-10-29] MEDS: FUROSEMIDE 40 MG/4 ML INJECTABLE VIAL IVPUSH SCH ×2 (05:33→14:48)
[2023-10-29 07:38] LABS: POTASSIUM 3.5 mmol/L (3.5-5.1)
[2023-10-29 07:46] LABS: ALBUMIN 3.3 g/dl (3.4-5.0); CREATININE 1.3 mg/dL (0.55-1.3)
[2023-10-29 07:47] LABS: BILIRUBIN,TOTAL 0.8 mg/dL (0.2-1); TOT PROT 8.5 g/dl (6.4-8.2)
[2023-10-29 07:49] LABS: CALCIUM 10.3 mg/dL (8.5-10.1)
[2023-10-29 07:55] LABS: BASO % 0.3 % (0-2.0); EOS % 0.1 % (0-4.5); LYMPH % 17.7 % (8-40); NEUT % 66.9 % (42.8-82.8)
[2023-10-29 08:30] LABS: HEMATOCRIT 45.1 % (35.4-49); HEMOGLOBIN 14.7 GM/dL (11.7-16.9); MCH 32.5 pg (25.7-33.7); MCHC 32.6 g/dl (32.0-35.9); MEAN CELL VOLUME 99.9 fl (80-96); PLATELET COUNT 131 10^3/uL (134-434); RBC 4.52 M/mm3 (4.00-5.60); RDW 15.7 % (11.9-15.9); WHITE BLOOD COUNT 7.1 K/mm3 (4.0-10.0)
[2023-10-29] MEDS: TAMSULOSIN HCL 0.4 MG CAP PO SCH (08:42)
[2023-10-29] MEDS: ENOXAPARIN NA (PORCINE) 40 MG/0.4 ML DISP.SYRIN SQ SCH (09:58)
[2023-10-29] MEDS: ALLOPURINOL 300 MG TABLET (FP) PO SCH (09:58)
[2023-10-29] MEDS: ESCITALOPRAM OXALATE 10 MG TABLET PO SCH (09:58)
[2023-10-29] MEDS: FINASTERIDE 5 MG TABLET (FP) PO SCH (09:59)
[2023-10-29] MEDS: LOSARTAN POTASSIUM 25 MG TABLET PO SCH ×2 (09:59→21:53)
[2023-10-29] MEDS ORDERED: RIVASTIGMINE TARTRATE PO SCH (11:15)
[2023-10-29] MEDS ORDERED: QUEtiapine FUMARATE 25 MG TABLET PO SCH (11:30)
[2023-10-29] MEDS: DEXTROSE 5%-0.45% SALINE 1,000 ML IV SCH (21:00)
[2023-10-29] MEDS: RIVASTIGMINE TARTRATE 1.5 MG CAPSULE PO SCH (21:52)
[2023-10-29] MEDS: EZETIMIBE 10 MG TABLET (FP) PO SCH (21:54)
[2023-10-29] MEDS: ATORVASTATIN CA 20 MG TABLET (FP) PO SCH (21:54)
[2023-10-29] MEDS: QUEtiapine FUMARATE 25 MG TABLET PO SCH (21:55)
[2023-10-30 07:34] LABS: POTASSIUM 3.2 mmol/L (3.5-5.1)
[2023-10-30 07:37] LABS: BLOOD UREA NITROGEN 37.3 mg/dL (7-18); CALCIUM 9.3 mg/dL (8.5-10.1)
[2023-10-30 07:40] LABS: CREATININE 1.2 mg/dL (0.55-1.3)
[2023-10-30] MEDS: DEXTROSE 5%-0.45% SALINE 1,000 ML IV SCH (08:23)
[2023-10-30] MEDS: ALLOPURINOL 300 MG TABLET (FP) PO SCH (09:08)
[2023-10-30] MEDS: LOSARTAN POTASSIUM 25 MG TABLET PO SCH ×2 (09:08→21:32)
[2023-10-30] MEDS: FINASTERIDE 5 MG TABLET (FP) PO SCH (09:08)
[2023-10-30] MEDS: ENOXAPARIN NA (PORCINE) 40 MG/0.4 ML DISP.SYRIN SQ SCH (09:08)
[2023-10-30] MEDS: TAMSULOSIN HCL 0.4 MG CAP PO SCH (09:08)
[2023-10-30] MEDS: ESCITALOPRAM OXALATE 10 MG TABLET PO SCH (09:08)
[2023-10-30] MEDS: RIVASTIGMINE TARTRATE 1.5 MG CAPSULE PO SCH ×2 (09:09→21:32)
[2023-10-30] MEDS: FUROSEMIDE 40 MG/4 ML INJECTABLE VIAL IVPUSH SCH (09:55)
[2023-10-30] MEDS ORDERED: KCL 10 MEQ IVPB 10 MEQ/100 ML INFUS.BAG IVPB SCH (13:30)
[2023-10-30] MEDS: KCL 10 MEQ IVPB 10 MEQ/100 ML INFUS.BAG IVPB SCH ×2 (14:40→15:54)
[2023-10-30] MEDS: ATORVASTATIN CA 20 MG TABLET (FP) PO SCH (21:32)
[2023-10-31 08:35] LABS: POTASSIUM 3.4 mmol/L (3.5-5.1)
[2023-10-31 08:44] LABS: CALCIUM 9.7 mg/dL (8.5-10.1)
[2023-10-31 08:45] LABS: BLOOD UREA NITROGEN 34.3 mg/dL (7-18)
[2023-10-31 08:48] LABS: CREATININE 0.9 mg/dL (0.55-1.3); PHOSPHOROUS 2.6 mg/dL (2.5-4.9)
[2023-10-31 08:49] LABS: BILIRUBIN,TOTAL 0.8 mg/dL (0.2-1); TOT PROT 8.2 g/dl (6.4-8.2)
[2023-10-31] MEDS: ALLOPURINOL 300 MG TABLET (FP) PO SCH (09:06)
[2023-10-31] MEDS: FINASTERIDE 5 MG TABLET (FP) PO SCH (09:06)
[2023-10-31] MEDS: ESCITALOPRAM OXALATE 10 MG TABLET PO SCH (09:06)
[2023-10-31] MEDS: RIVASTIGMINE TARTRATE 1.5 MG CAPSULE PO SCH ×2 (09:06→22:06)
[2023-10-31] MEDS: FUROSEMIDE 40 MG/4 ML INJECTABLE VIAL IVPUSH SCH (09:06)
[2023-10-31] MEDS: TAMSULOSIN HCL 0.4 MG CAP PO SCH (09:06)
[2023-10-31] MEDS: ENOXAPARIN NA (PORCINE) 40 MG/0.4 ML DISP.SYRIN SQ SCH (09:06)
[2023-10-31] MEDS: LOSARTAN POTASSIUM 25 MG TABLET PO SCH ×2 (09:06→22:06)
[2023-10-31] MEDS: ASPIRIN COATED 81 MG TABLET.EC PO SCH (09:11)
[2023-10-31] MEDS ORDERED: amLODIPine BESYLATE 2.5 MG TABLET (FP) PO SCH ×2 (10:00→22:00)
[2023-10-31] MEDS ORDERED: POTASSIUM CHLORIDE ORAL LIQUID 20 MEQ/15 ML PO ONE (10:30)
[2023-10-31] MEDS ORDERED: amLODIPine BESYLATE 2.5 MG TABLET (FP) PO ONE (11:00)
[2023-10-31] MEDS: EZETIMIBE 10 MG TABLET (FP) PO SCH (22:05)
[2023-10-31] MEDS: QUEtiapine FUMARATE 25 MG TABLET PO SCH (22:06)
[2023-10-31] MEDS: ATORVASTATIN CA 20 MG TABLET (FP) PO SCH (22:06)
[2023-11-01] MEDS ORDERED: POTASSIUM CHLORIDE ORAL LIQUID 20 MEQ/15 ML PO ONE (06:00)
[2023-11-01] MEDS: ALLOPURINOL 300 MG TABLET (FP) PO SCH (09:44)
[2023-11-01] MEDS: FINASTERIDE 5 MG TABLET (FP) PO SCH (09:44)
[2023-11-01] MEDS: TAMSULOSIN HCL 0.4 MG CAP PO SCH (09:44)
[2023-11-01] MEDS: FUROSEMIDE 40 MG/4 ML INJECTABLE VIAL IVPUSH SCH (09:44)
[2023-11-01] MEDS: LOSARTAN POTASSIUM 25 MG TABLET PO SCH ×2 (09:44→21:22)
[2023-11-01] MEDS: ESCITALOPRAM OXALATE 10 MG TABLET PO SCH (09:44)
[2023-11-01] MEDS: ASPIRIN COATED 81 MG TABLET.EC PO SCH (09:44)
[2023-11-01] MEDS: ENOXAPARIN NA (PORCINE) 40 MG/0.4 ML DISP.SYRIN SQ SCH (09:44)
[2023-11-01] MEDS: RIVASTIGMINE TARTRATE 1.5 MG CAPSULE PO SCH ×2 (09:44→21:22)
[2023-11-01] MEDS: ATORVASTATIN CA 20 MG TABLET (FP) PO SCH (21:22)
[2023-11-01] MEDS: QUEtiapine FUMARATE 25 MG TABLET PO SCH (21:22)
[2023-11-01] MEDS: amLODIPine BESYLATE 5 MG TABLET (FP) PO SCH (21:23)
[2023-11-02 07:57] LABS: BASO % 0.4 % (0-2.0); EOS % 1.6 % (0-4.5); HEMATOCRIT 43.9 % (35.4-49); HEMOGLOBIN 14.4 GM/dL (11.7-16.9); LYMPH % 39.4 % (8-40); MCHC 32.7 g/dl (32.0-35.9); MEAN CELL VOLUME 100.8 fl (80-96); MEAN PLT VOLUME 11.7 fl (7.5-11.1); MONO % 10.3 % (3.8-10.2); NEUT % 48.3 % (42.8-82.8); PLATELET COUNT 162 10^3/uL (134-434); RBC 4.36 M/mm3 (4.00-5.60); WHITE BLOOD COUNT 7.1 K/mm3 (4.0-10.0)
[2023-11-02 08:17] LABS: POTASSIUM 4.5 mmol/L (3.5-5.1)
[2023-11-02 08:22] LABS: ALBUMIN 2.9 g/dl (3.4-5.0); CALCIUM 10.1 mg/dL (8.5-10.1); MAGNESIUM 2.2 mg/dL (1.8-2.4)
[2023-11-02 08:25] LABS: BLOOD UREA NITROGEN 47.4 mg/dL (7-18); PHOSPHOROUS 3.4 mg/dL (2.5-4.9)
[2023-11-02 08:27] LABS: TOT PROT 8.1 g/dl (6.4-8.2)
[2023-11-02 08:30] LABS: BILIRUBIN,TOTAL 0.6 mg/dL (0.2-1)
[2023-11-02 09:25] LABS: PLATELET ESTIMATE ADEQUATE
[2023-11-02] MEDS: ASPIRIN COATED 81 MG TABLET.EC PO SCH (09:53)
[2023-11-02] MEDS: LOSARTAN POTASSIUM 25 MG TABLET PO SCH ×2 (09:53→21:20)
[2023-11-02] MEDS: RIVASTIGMINE TARTRATE 1.5 MG CAPSULE PO SCH ×2 (09:53→21:18)
[2023-11-02] MEDS: TAMSULOSIN HCL 0.4 MG CAP PO SCH (09:53)
[2023-11-02] MEDS: ESCITALOPRAM OXALATE 10 MG TABLET PO SCH (09:53)
[2023-11-02] MEDS: FINASTERIDE 5 MG TABLET (FP) PO SCH (09:54)
[2023-11-02] MEDS: ALLOPURINOL 300 MG TABLET (FP) PO SCH (09:54)
[2023-11-02] MEDS: FUROSEMIDE 40 MG/4 ML INJECTABLE VIAL IVPUSH SCH (09:54)
[2023-11-02] MEDS: amLODIPine BESYLATE 5 MG TABLET (FP) PO SCH (21:18)
[2023-11-02] MEDS: EZETIMIBE 10 MG TABLET (FP) PO SCH (21:18)
[2023-11-02] MEDS: QUEtiapine FUMARATE 25 MG TABLET PO SCH (21:20)
[2023-11-02] MEDS: ATORVASTATIN CA 20 MG TABLET (FP) PO SCH (21:20)
[2023-11-03] MEDS: TAMSULOSIN HCL 0.4 MG CAP PO SCH (08:28)
[2023-11-03 08:37] LABS: BASO % 0.5 % (0-2.0); EOS % 1.5 % (0-4.5); HEMATOCRIT 41.3 % (35.4-49); HEMOGLOBIN 13.4 GM/dL (11.7-16.9); LYMPH % 34.4 % (8-40); MCH 32.8 pg (25.7-33.7); MCHC 32.4 g/dl (32.0-35.9); MEAN CELL VOLUME 101.4 fl (80-96); MEAN PLT VOLUME 11.5 fl (7.5-11.1); MONO % 10.1 % (3.8-10.2); NEUT % 53.5 % (42.8-82.8); PLATELET COUNT 171 10^3/uL (134-434); RBC 4.07 M/mm3 (4.00-5.60); RDW 15.5 % (11.9-15.9)
[2023-11-03 08:49] LABS: POTASSIUM 4.1 mmol/L (3.5-5.1)
[2023-11-03 08:56] LABS: CALCIUM 9.6 mg/dL (8.5-10.1)
[2023-11-03 08:57] LABS: ALBUMIN 2.9 g/dl (3.4-5.0); BLOOD UREA NITROGEN 47.1 mg/dL (7-18); MAGNESIUM 2.3 mg/dL (1.8-2.4)
[2023-11-03 09:00] LABS: PHOSPHOROUS 3.3 mg/dL (2.5-4.9)
[2023-11-03 09:01] LABS: TOT PROT 7.8 g/dl (6.4-8.2)
[2023-11-03 09:02] LABS: BILIRUBIN,TOTAL 0.4 mg/dL (0.2-1)
[2023-11-03] MEDS: FINASTERIDE 5 MG TABLET (FP) PO SCH (11:17)
[2023-11-03] MEDS: RIVASTIGMINE TARTRATE 1.5 MG CAPSULE PO SCH (11:17)
[2023-11-03] MEDS: LOSARTAN POTASSIUM 25 MG TABLET PO SCH (11:17)
[2023-11-03] MEDS: ASPIRIN COATED 81 MG TABLET.EC PO SCH (11:17)
[2023-11-03] MEDS: ESCITALOPRAM OXALATE 10 MG TABLET PO SCH (11:17)
[2023-11-03] MEDS: ALLOPURINOL 300 MG TABLET (FP) PO SCH (11:17)
[2023-11-03 15:10] VITALS: BP 129/82; PULSE 73; RESP 13; TEMP 97.5
== END 2023-11-03 16:17 | DRG 291 ==
LOC: JER 18:09 → JERBED 22:13 → J4W 10-26 02:22
PROVIDERS: ADMIT Internal Medicine; ATTEND Internal Medicine
DX: I11.0 Hypertensive heart disease with heart failure (principal); G92.8 Other toxic encephalopathy; I50.33 Acute on chronic diastolic (congestive) heart failure; J18.9 Pneumonia, unspecified organism; I69.351 Hemiplegia and hemiparesis following cerebral infarction affecting right dominant side; E87.1 Hypo-osmolality and hyponatremia; I24.89 Other forms of acute ischemic heart disease; J98.11 Atelectasis; T43.595A Adverse effect of other antipsychotics and neuroleptics, initial encounter; D69.6 Thrombocytopenia, unspecified; E87.6 Hypokalemia; I71.21 Aneurysm of the ascending aorta, without rupture; I69.391 Dysphagia following cerebral infarction; R13.19 Other dysphagia; M10.9 Gout, unspecified; G20.A1 Parkinson's disease without dyskinesia, without mention of fluctuations; F02.80 Dementia in other diseases classified elsewhere, unspecified severity, without behavioral disturbance, psychotic disturbance, mood disturbance, and anxiety; E78.5 Hyperlipidemia, unspecified; I25.10 Atherosclerotic heart disease of native coronary artery without angina pectoris; N40.0 Benign prostatic hyperplasia without lower urinary tract symptoms; R79.89 Other specified abnormal findings of blood chemistry; Z95.5 Presence of coronary angioplasty implant and graft
CPT/HCPCS: 0241U-QW; 36415; 70450-TC; 71045-TC-FY; 71250-TC; 74230-TC-FY; 80053; 81003; 82962; 83735; 83880; 84100; 84484; 85025; 85027; 87040; 87086; 87635; 87899; 92611-GN; 93005; 93010; 93306-TC; 94761; 97116-GP; 97162-GP; 99285-25

== ENCOUNTER 2024-11-17 09:59 | Inpatient (IN) | payer OTHER ==
[2024-11-17 11:45] LABS: BASO % 0.2 % (0-2.0); EOS % 0.1 % (0-4.5); HEMATOCRIT 40.7 % (35.4-49); HEMOGLOBIN 13.7 GM/dL (11.7-16.9); LYMPH % 7.2 % (8-40); MCH 32.6 pg (25.7-33.7); MCHC 33.8 g/dl (32.0-35.9); MEAN CELL VOLUME 96.5 fl (80-96); MEAN PLT VOLUME 10.5 fl (7.5-11.1); MONO % 15.3 % (3.8-10.2); NEUT % 77.2 % (42.8-82.8); PLATELET COUNT 61 10^3/uL (134-434); RBC 4.21 M/mm3 (4.00-5.60); RDW 17.4 % (11.9-15.9); WHITE BLOOD COUNT 10.7 K/mm3 (4.0-10.0)
[2024-11-17 12:02] LABS: POTASSIUM 3.6 mmol/L (3.5-5.1)
[2024-11-17 12:04] LABS: ALBUMIN 3.4 g/dl (3.4-5.0); CALCIUM 9.6 mg/dL (8.5-10.1)
[2024-11-17 12:05] LABS: BLOOD UREA NITROGEN 17.7 mg/dL (7-18); MAGNESIUM 1.9 mg/dL (1.8-2.4)
[2024-11-17 12:08] LABS: CREATININE 1.1 mg/dL (0.55-1.3)
[2024-11-17 12:09] LABS: BILIRUBIN,TOTAL 0.8 mg/dL (0.2-1); TOT PROT 7.5 g/dl (6.4-8.2)
[2024-11-17 13:49] LABS: EPI CELLS 3 /uL (0-25.1); HYALINE CASTS 4 /uL (0-3.1); URINE APPEARANCE CLEAR; URINE BACTERIA 1932 /uL (0-1359); URINE BILIRUBIN NEGATIVE (NEGATIVE); URINE COLOR YELLOW; URINE GLUCOSE (UA) NEGATIVE (NEGATIVE); URINE KETONE NEGATIVE (NEGATIVE); URINE LEUK ESTERASE NEGATIVE (NEGATIVE); URINE NITRITE NEGATIVE (NEGATIVE); URINE PROTEIN 2+ (NEGATIVE); URINE RBC 29 /uL (0-23.9); URINE UROBILINOGEN 0.2 mg/dL (0.2-1.0)
[2024-11-17] MEDS ORDERED: CEFTRIAXONE 1 G/50 ML PREMIX 50 ML IVPB ONE (14:24)
[2024-11-17 14:39] LABS: URINE WBC 241.9 /uL (0-25.8)
[2024-11-17] MEDS: EZETIMIBE 10 MG TABLET (FP) PO SCH (17:29)
[2024-11-17 18:48] VITALS: BMI 27.8
[2024-11-17] MEDS: ATORVASTATIN CA 10 MG TABLET (FP) PO SCH (21:23)
[2024-11-17] MEDS: QUEtiapine FUMARATE 25 MG TABLET PO SCH (21:24)
[2024-11-17] MEDS: RIVASTIGMINE TARTRATE 1.5 MG CAPSULE PO SCH (21:24)
[2024-11-18] MEDS: SODIUM CHLORIDE 0.9% 500 ML INFUS.BAG IV ONE (01:08)
[2024-11-18 04:06] VITALS: RESP 18
[2024-11-18 08:40] LABS: MCH 32.4 pg (25.7-33.7); MCHC 33.3 g/dl (32.0-35.9); MEAN PLT VOLUME 10.2 fl (7.5-11.1); PLATELET COUNT 58 10^3/uL (134-434); RBC 4.02 M/mm3 (4.00-5.60); RDW 17.3 % (11.9-15.9)
[2024-11-18 08:59] LABS: CHLORIDE 93 mmol/L (98-107); POTASSIUM 3.5 mmol/L (3.5-5.1); SODIUM 131 mmol/L (136-145)
[2024-11-18 09:07] LABS: ALBUMIN 3.2 g/dl (3.4-5.0); ANION GAP 6 mmol/L (4-13); BLOOD UREA NITROGEN 18.8 mg/dL (7-18); CALCIUM 8.9 mg/dL (8.5-10.1); CO2 32 mmol/L (21-32); GLUCOSE,RANDOM 97 mg/dL (74-106); MAGNESIUM 1.8 mg/dL (1.8-2.4)
[2024-11-18 09:10] LABS: CREATININE 0.8 mg/dL (0.55-1.3); PHOSPHOROUS 2.9 mg/dL (2.5-4.9); SGOT/AST 24 U/L (15-37); SGPT/ALT < 6 U/L (13-61)
[2024-11-18 09:11] LABS: BILIRUBIN,TOTAL 1.2 mg/dL (0.2-1)
[2024-11-18 09:12] LABS: TOT PROT 7.3 g/dl (6.4-8.2)
[2024-11-18 09:13] LABS: ALK PHOS 56 U/L (45-117)
[2024-11-18] MEDS: HYDROCHLOROTHIAZIDE 12.5 MG CAPSULE (FP) PO SCH (09:26)
[2024-11-18] MEDS: LOSARTAN POTASSIUM 25 MG TABLET PO SCH (09:27)
[2024-11-18] MEDS: ASPIRIN COATED 81 MG TABLET.EC PO SCH (09:27)
[2024-11-18] MEDS: ESCITALOPRAM OXALATE 10 MG TABLET PO SCH (09:27)
[2024-11-18] MEDS: FINASTERIDE 5 MG TABLET (FP) PO SCH (09:27)
[2024-11-18] MEDS: CHOLECALCIFEROL (VIT D3) 1,000 UNIT (25 MCG) TABLET PO SCH (09:27)
[2024-11-18] MEDS: TAMSULOSIN HCL 0.4 MG CAP PO SCH (09:27)
[2024-11-18] MEDS: ENOXAPARIN NA (PORCINE) 40 MG/0.4 ML DISP.SYRIN SQ SCH (09:28)
[2024-11-18] MEDS: ALLOPURINOL 300 MG TABLET (FP) PO SCH (09:29)
[2024-11-18] MEDS ORDERED: UBIDECARENONE 200 MG PO SCH (10:00)
[2024-11-18] MEDS: CEFTRIAXONE 500 MG in DEXTROSE 5%-WATER - 50 ML IVPB SCH (10:34)
[2024-11-18] MEDS ORDERED: VANCOMYCIN 1,000 MG in DEXTROSE 5%-WATER - 250 ML IVPB SCH (11:15)
[2024-11-18 11:32] LABS: ANISOCYTOSIS 0; HELMET CELLS 0; HOWELL-JOLLY BODIES 0; MACROCYTOSIS 0; OVALOCYTE 0; ROULEAU 0; SICKELED CELLS 0; TARGET CELLS 0; TEAR DROP CELLS 0; TOXIC GRANULATION 0
[2024-11-18] MEDS: VANCOMYCIN 1 GM PREMIX (F) 1 GM/200 ML BAG IVPB SCH (12:31)
[2024-11-18] MEDS: SODIUM CHLORIDE 1,000 ML IV SCH (17:36)
[2024-11-18] MEDS: QUETIAPINE FUMARATE 25 MG, QUETIAPINE FUMARATE 50 MG PO SCH (21:14)
[2024-11-18] MEDS ORDERED: QUEtiapine FUMARATE 50 MG TABLET PO SCH (22:00)
[2024-11-19 09:29] VITALS: PULSE 58; TEMP 98.4
[2024-11-19 10:15] LABS: HEMATOCRIT 39.9 % (35.4-49); HEMOGLOBIN 13.1 GM/dL (11.7-16.9); MCH 32.3 pg (25.7-33.7); MCHC 32.9 g/dl (32.0-35.9); MEAN CELL VOLUME 98.1 fl (80-96); MEAN PLT VOLUME 10.6 fl (7.5-11.1); PLATELET COUNT 62 10^3/uL (134-434); RBC 4.07 M/mm3 (4.00-5.60); RDW 17.2 % (11.9-15.9); WHITE BLOOD COUNT 5.8 K/mm3 (4.0-10.0)
[2024-11-19 10:38] LABS: POTASSIUM 3.5 mmol/L (3.5-5.1)
[2024-11-19 10:45] LABS: ALBUMIN 3.2 g/dl (3.4-5.0); BLOOD UREA NITROGEN 18.9 mg/dL (7-18); CALCIUM 9.2 mg/dL (8.5-10.1)
[2024-11-19 10:49] LABS: BILIRUBIN,TOTAL 0.8 mg/dL (0.2-1); CREATININE 0.8 mg/dL (0.55-1.3); TOT PROT 7.3 g/dl (6.4-8.2)
[2024-11-19] MEDS ORDERED: AMOXICILLIN 500 MG CAPSULE (FP) PO ONE (11:14)
[2024-11-19 12:00] LABS: ANISOCYTOSIS 0; HELMET CELLS 0; HOWELL-JOLLY BODIES 0; MACROCYTOSIS 0; OVALOCYTE 0; ROULEAU 0; SICKELED CELLS 0; TARGET CELLS 0; TEAR DROP CELLS 0; TOXIC GRANULATION 0
[2024-11-19 12:35] VITALS: BP 172/79
[2024-11-19] MEDS: AMOXICILLIN - 500 MG, AMOXICILLIN - 250 MG PO ONE (12:42)
== END 2024-11-19 13:49 | disposition home or self-care (01) | DRG 689 ==
LOC: JER 09:59 → JERBED 14:51 → J6S 16:52 → OBSVTOIN 11-18 13:09
PROVIDERS: ADMIT Student in an Organized Health Care Education/Training Program; ATTEND Internal Medicine
DX: N39.0 Urinary tract infection, site not specified (principal); G93.41 Metabolic encephalopathy; I69.354 Hemiplegia and hemiparesis following cerebral infarction affecting left non-dominant side; F02.818 Dementia in other diseases classified elsewhere, unspecified severity, with other behavioral disturbance; I10 Essential (primary) hypertension; E78.5 Hyperlipidemia, unspecified; I25.10 Atherosclerotic heart disease of native coronary artery without angina pectoris; G20.A1 Parkinson's disease without dyskinesia, without mention of fluctuations; F02.80 Dementia in other diseases classified elsewhere, unspecified severity, without behavioral disturbance, psychotic disturbance, mood disturbance, and anxiety; N40.0 Benign prostatic hyperplasia without lower urinary tract symptoms; F32.A Depression, unspecified; M10.9 Gout, unspecified; D69.6 Thrombocytopenia, unspecified
CPT/HCPCS: 0241U-QW; 36415; 70450-TC; 71045-TC-FY; 80053; 81003; 83735; 84100; 84484; 85025; 87086; 87186; 93005; 93010; 99285-25; G0378

== ENCOUNTER 2024-11-21 17:45 | Observation (INO) | payer OTHER ==
[2024-11-21 19:11] LABS: HEMATOCRIT 36.3 % (35.4-49); MCH 32.1 pg (25.7-33.7); MCHC 33.1 g/dl (32.0-35.9); MEAN CELL VOLUME 96.8 fl (80-96); MEAN PLT VOLUME 9.9 fl (7.5-11.1); PLATELET COUNT 57 10^3/uL (134-434); RBC 3.75 M/mm3 (4.00-5.60); RDW 17.5 % (11.9-15.9)
[2024-11-21 19:16] LABS: INR 1.25 (0.83-1.09); PROTHROMBIN TIME (PATIENT) 13.7 SEC (9.7-13.0)
[2024-11-21 19:19] LABS: ACTIVATED PTT 30.1 SECONDS (25.2-36.5)
[2024-11-21 19:30] LABS: POTASSIUM 3.5 mmol/L (3.5-5.1)
[2024-11-21 19:32] LABS: BLOOD UREA NITROGEN 18.5 mg/dL (7-18); CALCIUM 8.7 mg/dL (8.5-10.1)
[2024-11-21 19:34] LABS: CREATININE 0.8 mg/dL (0.55-1.3)
[2024-11-21 19:37] LABS: BILIRUBIN,TOTAL 0.5 mg/dL (0.2-1); TOT PROT 6.9 g/dl (6.4-8.2)
[2024-11-21 20:14] LABS: ANISOCYTOSIS 1+; MACROCYTOSIS 0
[2024-11-21 20:43] LABS: PH,URINE 5.5 (5.0-8.0); URINE APPEARANCE CLEAR; URINE BILIRUBIN NEGATIVE (NEGATIVE); URINE COLOR YELLOW; URINE GLUCOSE (UA) NEGATIVE (NEGATIVE); URINE KETONE NEGATIVE (NEGATIVE); URINE LEUK ESTERASE NEGATIVE (NEGATIVE); URINE NITRITE NEGATIVE (NEGATIVE); URINE PROTEIN NEGATIVE (NEGATIVE); URINE UROBILINOGEN 0.2 mg/dL (0.2-1.0)
[2024-11-21] MEDS: ACETAMINOPHEN 1000 MG/100 ML BAG IVPB ONE (20:45)
[2024-11-21] MEDS: SODIUM CHLORIDE 0.9% 500 ML INFUS.BAG IV ONE (20:45)
[2024-11-21] MEDS ORDERED: ACETAMINOPHEN INJECTION 100 ML ONE (20:48)
[2024-11-22] MEDS ORDERED: AMOX TR/POT CLAV 875MG/125MG TABLETS (FP) ONE (01:48)
[2024-11-22] MEDS ORDERED: CARBIDOPA/LEVODOPA 25/100 TABLET (FP) ONE (01:48)
[2024-11-22] MEDS: EZETIMIBE 10 MG TABLET (FP) PO SCH ×2 (01:56→10:40)
[2024-11-22] MEDS: QUEtiapine FUMARATE 25 MG TABLET PO ONE (01:57)
[2024-11-22] MEDS: AMOX TR/POT CLAV 875MG/125MG TABLETS (FP) PO ONE (03:11)
[2024-11-22] MEDS ORDERED: UBIDECARENONE 200 MG PO SCH (10:00)
[2024-11-22] MEDS: SODIUM CHLORIDE 1,000 ML IV SCH (10:25)
[2024-11-22] MEDS: CHOLECALCIFEROL (VIT D3) 1,000 UNIT (25 MCG) TABLET PO SCH (10:39)
[2024-11-22] MEDS: HYDROCHLOROTHIAZIDE 12.5 MG CAPSULE (FP) PO SCH (10:40)
[2024-11-22] MEDS: ESCITALOPRAM OXALATE 10 MG TABLET PO SCH (10:40)
[2024-11-22] MEDS: FINASTERIDE 5 MG TABLET (FP) PO SCH (10:40)
[2024-11-22] MEDS: ALLOPURINOL 300 MG TABLET (FP) PO SCH (10:40)
[2024-11-22] MEDS: ENOXAPARIN NA (PORCINE) 40 MG/0.4 ML DISP.SYRIN SQ SCH (10:41)
[2024-11-22] MEDS: LOSARTAN POTASSIUM 25 MG TABLET PO SCH (12:50)
[2024-11-22] MEDS ORDERED: PATIENT'S OWN MEDICATION (NON-FORMULARY) (Amoxicillin [Amoxicillin] 875 MG Tablet) PO SCH (13:00)
[2024-11-22] MEDS: ASPIRIN COATED 81 MG TABLET.EC PO SCH (14:08)
[2024-11-22] MEDS: TAMSULOSIN HCL 0.4 MG CAP PO SCH (14:08)
[2024-11-22] MEDS: RIVASTIGMINE TARTRATE 3 MG CAPSULE PO SCH (14:09)
[2024-11-22 17:42] VITALS: BMI 30.2
[2024-11-22 18:01] LABS: BASO % 0.3 % (0-2.0); EOS % 1.1 % (0-4.5); HEMATOCRIT 36.7 % (35.4-49); HEMOGLOBIN 12.1 GM/dL (11.7-16.9); LYMPH % 21.7 % (8-40); MCHC 32.8 g/dl (32.0-35.9); MEAN CELL VOLUME 97.3 fl (80-96); MEAN PLT VOLUME 9.6 fl (7.5-11.1); MONO % 23.1 % (3.8-10.2); NEUT % 53.8 % (42.8-82.8); PLATELET COUNT 55 10^3/uL (134-434); RBC 3.78 M/mm3 (4.00-5.60); RDW 17.1 % (11.9-15.9); WHITE BLOOD COUNT 7.1 K/mm3 (4.0-10.0)
[2024-11-22] MEDS: AMOX TR/POT CLAV 875MG/125MG TABLETS (FP) PO SCH (18:28)
[2024-11-22 19:41] LABS: ANISOCYTOSIS 3+; MACROCYTOSIS 0; TARGET CELLS 1+
[2024-11-22] MEDS: hydrALAZINE HCL 20 MG/ML VIAL IVPB ONE (20:19)
[2024-11-22] MEDS: hydrALAZINE HCL 20 MG/ML VIAL IVPUSH ONE (20:23)
[2024-11-22] MEDS ORDERED: QUEtiapine FUMARATE 25 MG TABLET PO SCH (22:00)
[2024-11-22] MEDS ORDERED: QUEtiapine FUMARATE 50 MG TABLET PO SCH (22:00)
[2024-11-22] MEDS: QUEtiapine FUMARATE 25 MG TABLET PO SCH (22:55)
[2024-11-22] MEDS: RIVASTIGMINE TARTRATE 1.5 MG CAPSULE PO SCH (22:55)
[2024-11-22] MEDS: ATORVASTATIN CA 10 MG TABLET (FP) PO SCH (22:55)
[2024-11-22] MEDS ORDERED: LIDOCAINE 4% PATCH TP SCH (23:40)
[2024-11-23] MEDS: LIDOCAINE 4% PATCH TP SCH (00:42)
[2024-11-23] MEDS: LIDOCAINE PATCH REMOVAL MC SCH (03:44)
[2024-11-23] MEDS: QUEtiapine FUMARATE 25 MG TABLET PO ONE (04:20)
[2024-11-23] MEDS: ACETAMINOPHEN 325 MG TABLET (FP) PO ONE (04:20)
[2024-11-23] MEDS ORDERED: LIDOCAINE 4% PATCH TP SCH (10:00)
[2024-11-23] MEDS: ASPIRIN 81 MG CHEWABLE TABLETS PO SCH (10:03)
[2024-11-23 10:04] LABS: HEMATOCRIT 36.3 % (35.4-49); HEMOGLOBIN 11.7 GM/dL (11.7-16.9); MCH 31.6 pg (25.7-33.7); MCHC 32.2 g/dl (32.0-35.9); MEAN PLT VOLUME 10.3 fl (7.5-11.1); PLATELET COUNT 68 10^3/uL (134-434); RDW 17.2 % (11.9-15.9); WHITE BLOOD COUNT 6.8 K/mm3 (4.0-10.0)
[2024-11-23 10:22] LABS: CHLORIDE 95 mmol/L (98-107); POTASSIUM 3.8 mmol/L (3.5-5.1); SODIUM 131 mmol/L (136-145)
[2024-11-23 10:24] LABS: CALCIUM 8.4 mg/dL (8.5-10.1)
[2024-11-23 10:25] LABS: ALBUMIN 2.7 g/dl (3.4-5.0); ANION GAP 4 mmol/L (4-13); BLOOD UREA NITROGEN 11.9 mg/dL (7-18); CO2 32 mmol/L (21-32); GLUCOSE,RANDOM 121 mg/dL (74-106)
[2024-11-23 10:28] LABS: CREATININE 0.7 mg/dL (0.55-1.3); SGOT/AST 19 U/L (15-37); SGPT/ALT < 6 U/L (13-61)
[2024-11-23 10:30] LABS: BILIRUBIN,TOTAL 0.7 mg/dL (0.2-1); TOT PROT 6.7 g/dl (6.4-8.2)
[2024-11-23 10:31] LABS: ALK PHOS 50 U/L (45-117)
[2024-11-23 10:40] LABS: MAGNESIUM 1.8 mg/dL (1.8-2.4)
[2024-11-23] MEDS: LIDOCAINE PATCH REMOVAL MC ONE (13:11)
[2024-11-23] MEDS ORDERED: QUEtiapine FUMARATE 25 MG TABLET PO SCH (17:03)
[2024-11-23] MEDS: QUEtiapine FUMARATE 25 MG TABLET PO SCH (22:18)
[2024-11-24] MEDS: amLODIPine BESYLATE 5 MG TABLET (FP) PO SCH (12:10)
[2024-11-24] MEDS: MAGNESIUM SULFATE IN WATER 2 GM/50 ML IVPB IVPB ONE (12:59)
[2024-11-24 15:54] VITALS: RESP 18
[2024-11-24] MEDS: LOSARTAN POTASSIUM 25 MG TABLET PO SCH (22:27)
[2024-11-24] MEDS: QUEtiapine FUMARATE 25 MG TABLET PO SCH (22:30)
[2024-11-25] MEDS: amLODIPine BESYLATE 5 MG TABLET (FP) PO ONE (05:54)
[2024-11-25 09:08] VITALS: BP 175/84; PULSE 65; TEMP 97.5
== END 2024-11-25 11:49 ==
LOC: JER 17:45 → JERBED 23:03 → UNDOADMOB 23:03 → INTOOBSV 11-22 00:56 → OBSVTOIN 11-22 00:56 → J5S 11-22 07:15 → JERBED 11-22 07:15 → J5S 11-22 11:47 → JERBED 11-22 11:47
PROVIDERS: ADMIT Internal Medicine
PROC: 3E033NZ Introduction of Analgesics, Hypnotics, Sedatives into Peripheral Vein, Percutaneous Approach (ICD-10-PCS; principal; 2024-11-22)
PROC: 3E023GC Introduction of Other Therapeutic Substance into Muscle, Percutaneous Approach (ICD-10-PCS; 2024-11-22)
PROC: 3E0337Z Introduction of Electrolytic and Water Balance Substance into Peripheral Vein, Percutaneous Approach (ICD-10-PCS; 2024-11-22)
PROC: 3E033GC Introduction of Other Therapeutic Substance into Peripheral Vein, Percutaneous Approach (ICD-10-PCS; 2024-11-22)
DX: G20.A1 Parkinson's disease without dyskinesia, without mention of fluctuations (principal); F02.80 Dementia in other diseases classified elsewhere, unspecified severity, without behavioral disturbance, psychotic disturbance, mood disturbance, and anxiety; I11.0 Hypertensive heart disease with heart failure; E78.5 Hyperlipidemia, unspecified; I25.10 Atherosclerotic heart disease of native coronary artery without angina pectoris; I69.354 Hemiplegia and hemiparesis following cerebral infarction affecting left non-dominant side; R39.15 Urgency of urination; G31.89 Other specified degenerative diseases of nervous system; F32.A Depression, unspecified
CPT/HCPCS: 0241U-QW; 36415; 70450-TC; 71045-TC-FY; 72131-TC; 74177-TC; 80053; 81003; 82607; 83605; 83735; 84484; 85025; 85610; 85730; 86850; 86900; 86901; 87040; 87086; 93005; 93010; 96365; 96372; 96375; 97116-GP; 99285-25; G0378; J0131; Q9967